=== PATIENT | male | born 1975 | race Caucasian/White ===

== ENCOUNTER → 2025-06-29 14:42 | Outpatient (REF) | payer OTHER, SELFPAY | LOC: HWRAD 14:42 | PROVIDERS: ATTENDING PHYSICIAN Internal Medicine | DX: R22.32 Localized swelling, mass and lump, left upper limb (principal) | CPT/HCPCS: 76882 ==

== ENCOUNTER → 2025-07-08 08:55 | Outpatient (REF) | payer OTHER, SELFPAY ==
[2025-07-08 09:12] VITALS: BP 133/84; BP_SYST 60
[2025-07-08 10:18] VITALS: BP 139/88; BP_SYST 73
== END ==
LOC: RADI 08:55
PROVIDERS: ATTENDING PHYSICIAN Internal Medicine
DX: M72.4 Pseudosarcomatous fibromatosis (principal)
CPT/HCPCS: 20206; 76942; 88172; 88173; 88177; 88305; 88333; 88341; 88342; 88377